=== PATIENT | male | born 1965 | race Caucasian/White ===

== ENCOUNTER → 2020-11-13 | Outpatient (CLI) | payer OTHER ==
[~2020-11-13] MED LIST: PROHANCE 279.3MG/ML 15ML VIAL As Ordered ONE
--- NOTE | 2020-11-13 16:16 | REPVR ---
PROCEDURE INFORMATION: Exam: MR Head Without and With Contrast Exam date and time: 11/13/2020 2:50 PM Age: 55 years old Clinical indication: Condition or disease; Multiple sclerosis; Weakness, extremity; Bilateral; Patient HX: HX ms increased weakness TECHNIQUE: Imaging protocol: MR of the head without and with intravenous contrast. 3D rendering (Not supervised by radiologist): MIP and/or 3D reconstructed images were created by the technologist. Contrast material: PROHANCE; Contrast volume: 17 ml; Contrast route: INTRAVENOUS (IV); COMPARISON: No relevant prior studies available. FINDINGS: Brain: No evidence of acute infarct or active demyelination based on the diffusion-weighted imaging. The T2 weighted imaging demonstrates a few scattered hyperintense lesions in the deep white matter, some of which appear elongated in morphology and arise perpendicular to the ependymal surfaces of the lateral ventricles in keeping with the provided history of primary demyelinating disease. There is a T2 hyperintense focus in the naheed extending inferiorly to pontomedullary junction with faint partially correlative enhancement on the postcontrast imaging, image 11 series 1701, image 12 series 1801, image 11 series 501. Cerebral ventricles: Normal. No ventriculomegaly. Bones/joints: Unremarkable. Paranasal sinuses: Trace bilateral ethmoid as well as mild left maxillary sinus mucosal thickening. Mastoid air cells: Normal as visualized. No mastoid effusion. Orbits: Unremarkable. Soft tissues: Unremarkable. IMPRESSION: A focus of active demyelination is suggested in the central naheed. Electronically signed by: Ling Huynh On 11/13/2020 16:16:30 PM
--- NOTE | 2020-11-13 16:24 | REPVR ---
PROCEDURE INFORMATION: Exam: MR Cervical Spine Without and With Contrast Exam date and time: 11/13/2020 12:56 PM Age: 55 years old Clinical indication: Condition or disease; Other: M/s; Patient HX: Known ms increase in weakness; Additional info: Multiple sclerosis TECHNIQUE: Imaging protocol: Multiplanar magnetic resonance images of the cervical spine without and with intravenous contrast. 3D rendering (Not supervised by radiologist): MIP and/or 3D reconstructed images were created by the technologist. Contrast material: PROHANCE; Contrast volume: 17 ml; Contrast route: INTRAVENOUS (IV); COMPARISON: No relevant prior studies available. FINDINGS: Vertebrae: Anatomic alignment. No acute fracture seen. Spinal cord: Normal signal. No cord compression. There is disc desiccation. No significant disc height loss. C2-C3: No significant disc disease. No significant spinal stenosis. C3-C4: The central spinal canal is patent. Uncovertebral and facet arthropathy causing moderate left neural foraminal stenosis. No significant right neural foraminal narrowing. C4-C5: Subtle central disc protrusion does not contribute to central spinal canal stenosis. The neural foramina are patent. C5-C6: Mild disc bulge and slight ligamentum flavum buckling. The central spinal canal remains patent. Uncovertebral and facet arthropathy causing mild bilateral neural foraminal stenoses. C6-C7: Mild disc bulge and slight ligamentum flavum buckling. The central spinal canal remains patent. Uncovertebral and facet arthropathy causing mild left neural foraminal stenosis. No significant right neural foraminal narrowing. C7-T1: No significant disc disease. No significant spinal stenosis. Vertebral arteries: Expected flow voids in the vertebral arteries. Soft tissues: Unremarkable. IMPRESSION: No evidence of active demyelination. Electronically signed by: Ling Huynh On 11/13/2020 16:24:13 PM
== END ==
LOC: M RAD 12:33
DX: G35 Multiple sclerosis (principal)
CPT/HCPCS: 70553; 72156; A9576

== ENCOUNTER → 2025-07-04 | Outpatient (CLI) | payer OTHER | LOC: M SLEEP 20:00 | PROVIDERS: ATTEND Family Medicine | DX: G47.33 Obstructive sleep apnea (adult) (pediatric) (principal); G35 Multiple sclerosis ==